=== PATIENT | male | born 1960 | race Caucasian/White ===

== ENCOUNTER 2021-11-23 14:21 | Outpatient (CLI) | payer MEDICAID | END 2021-11-23 23:59 | disposition home or self-care (01) | LOC: CARD DIAG 14:21 | PROVIDERS: ATTEND Psychiatry & Neurology Sleep Medicine | DX: I34.0 Nonrheumatic mitral (valve) insufficiency (principal); G47.33 Obstructive sleep apnea (adult) (pediatric); I50.9 Heart failure, unspecified | CPT/HCPCS: 93306 ==

== ENCOUNTER 2023-01-18 16:27 | Emergency (ER) | payer MEDICAID ==
[~2023-01-18] VITALS: Ht 210.8 cm; Wt 106.0 kg
[~2023-01-18 16:27] MED LIST: BETA15CR4 TOP; CARV3.1244 PO; CLOT15CR11 TOP; LISI40TA13 PO; LORA10TA7 PO; MECL-159 PO; NITR0.4T48; ROSU20TA73 PO; TEST200V33 IM; VENL150C58 PO
[2023-01-18 16:48] LABS: BASOPHILS # (AUTO) 0.1 X10'3 (0-0.2); BASOPHILS % (AUTO) 1.1 % (0-1); EOSINOPHILS # (AUTO) 0.3 X10'3 (0-0.9); EOSINOPHILS % (AUTO) 3.6 % (0-6); HEMATOCRIT 53.4 % (42.0-52.0); LYMPHOCYTES # (AUTO) 1.6 X10'3 (1.1-4.8); LYMPHOCYTES % (AUTO) 21.4 % (21-51); MEAN CORPUSCULAR HEMOGLOBIN 31.3 PG (27.0-31.0); MEAN CORPUSCULAR HGB CONC 33.7 g/dL (33.0-36.5); MEAN CORPUSCULAR VOLUME 92.6 FL (78-98); MEAN PLATELET VOLUME 7.6 FL (7.4-10.4); MONOCYTES # (AUTO) 0.6 X10'3 (0-0.9); MONOCYTES % (AUTO) 8.4 % (2-12); NEUTROPHILS # (AUTO) 4.9 X10'3 (1.8-7.7); NEUTROPHILS % (AUTO) 65.5 % (42-75); PLATELET COUNT 208 X10'3 (140-440); RED BLOOD COUNT 5.76 X10'6 (4.70-6.10); RED CELL DISTRIBUTION WIDTH 14.4 % (11.5-14.5); WHITE BLOOD COUNT 7.4 X10'3 (4.5-11.0)
[2023-01-18 17:01] LABS: ALANINE AMINOTRANSFERASE 25 U/L (12-78); ALBUMIN 3.8 G/DL (3.4-5.0); ALKALINE PHOSPHATASE 84 IU/L (46-116); ANION GAP 11 (8-16); ASPARTATE AMINO TRANSFERASE 12 U/L (10-37); BILIRUBIN,TOTAL 0.7 MG/DL (0.1-1.0); BLOOD UREA NITROGEN 10 MG/DL (7-18); BUN/CREATININE RATIO 9.6 (10.0-20.0); CALCIUM 9.4 MG/DL (8.5-10.1); CHLORIDE 103 MMOL/L (99-107); CREATININE 1.04 MG/DL (0.60-1.10); GLUCOSE 112 MG/DL (70-104); POTASSIUM 3.9 MMOL/L (3.5-5.1); SODIUM 140 MMOL/L (135-145); TOTAL CARBON DIOXIDE 25.9 MMOL/L (24-32); TOTAL PROTEIN 7.6 G/DL (6.4-8.2); eGFR 73 ML/MIN
--- NOTE | 2023-01-18 18:45 | NUR ---
PT REPORTS FEELING MORE DIZZY AND SHAKY, VS TAKEN, CONSULTING INTERN MADE AWARE.
[2023-01-18] MEDS ORDERED: iohexol 350MG/ML 100ml bottle IV ONE (21:12)
[2023-01-18 21:48] VITALS: BP 158/100
[2023-01-18] MEDS ORDERED: MECL-231 PO (22:22)
== END 2023-01-18 22:32 | disposition home or self-care (01) ==
LOC: ER 16:28
DX: H81.13 Benign paroxysmal vertigo, bilateral (principal); R07.9 Chest pain, unspecified; I10 Essential (primary) hypertension; Z79.899 Other long term (current) drug therapy
CPT/HCPCS: 36415; 70496; 70498; 71045; 80053; 83880; 84484; 85025; 93005; 99285; J3490; Q9967